=== PATIENT | female | born 1995 | race African-American/Black ===

== ENCOUNTER 2021-01-13 17:18 | Emergency (ER) | payer OTHER ==
[~2021-01-13] VITALS: Ht 167.6 cm; Wt 74.3 kg
[2021-01-13] MEDS ORDERED: LORA10CA PO (17:53)
[2021-01-13] MEDS ORDERED: FLUT9.9S NAS (17:53)
--- NOTE | 2021-01-13 18:00 | NUR ---
ASSUMED CARE OF PATIENT IN ROOM 14. PT C/O GENERALIZED WEAKNESS X 2 WEEKS. PIV STARTED AND BLOOD DRAWN.
[2021-01-13 18:31] LABS: BASOPHILS % (AUTO) 1 % (0-1); EOSINOPHILS % (AUTO) 8 % (1-7); LYMPHOCYTES % (AUTO) 35 % (22-44); MD NO; MEAN CORPUSCULAR HEMOGLOBIN 28.5 pg (27.0-34.8); MEAN CORPUSCULAR HGB CONC 33.3 g/dL (32.4-35.8); MEAN PLATELET VOLUME 8.1 fL (7.4-10.4); MONOCYTES % (AUTO) 14 % (2-9); NEUTROPHILS % (AUTO) 42 % (42-75); PLATELET COUNT 333 x10^3/uL (130-400); RED BLOOD COUNT 3.98 x10^6/uL (3.82-5.3); RED CELL DISTRIBUTION WIDTH 15.4 % (9.6-15.2)
--- NOTE | 2021-01-13 18:37 | NUR ---
URINE COLLECTED AND SENT TO LAB.
[2021-01-13 18:43] LABS: ALBUMIN 3.5 g/dL (3.4-5.0); ANION GAP 3 mmol/L (5-15); CALCIUM 8.2 mg/dL (8.5-10.1); CHLORIDE 111 mmol/L (98-107); CREATININE 0.79 mg/dL (0.55-1.02)
[2021-01-13 18:43] LABS: MICROSCOPIC INDICATED
--- NOTE | 2021-01-13 18:56 | NUR ---
BEDSIDE REPORT RECEIVED FROM ANJELICA MIRANDA
--- NOTE | 2021-01-13 18:57 | NUR ---
PT SUPINE ON GURNEY, RESTING COMFORTABLY, NADN, VSS. SIGNIFICANT OTHER AT BEDSIDE. PT DENIES ANY NEEDS AT THIS TIME. CALL LIGHT AND PERSONAL BELONGINGS WITHIN REACH.
[2021-01-13 20:00] VITALS: BP 115/69
--- NOTE | 2021-01-13 20:11 | NUR ---
Patient given discharge instructions and they have confirmed that they understand the instructions. Patient ambulatory with steady gait.
== END 2021-01-13 20:12 | disposition home or self-care (01) ==
LOC: ED 20:00
DX: R11.2 Nausea with vomiting, unspecified (principal); R53.1 Weakness; R53.83 Other fatigue; N93.9 Abnormal uterine and vaginal bleeding, unspecified; F17.200 Nicotine dependence, unspecified, uncomplicated
CPT/HCPCS: 36415; 80048; 81001; 82040; 84703; 85025; 99283